=== PATIENT | male | born 1955 | race Asian ===

== ENCOUNTER 2020-05-16 05:13 | Day surgery (SDC) | payer MEDICAID ==
[2020-05-10 12:12] LABS: BASOPHILS % (AUTO) 0.5 % (0-1); EOSINOPHILS # (AUTO) 0.2 X10'3 (0-0.9); EOSINOPHILS % (AUTO) 3.3 % (0-6); LYMPHOCYTES # (AUTO) 2.1 X10'3 (1.1-4.8); LYMPHOCYTES % (AUTO) 32.4 % (21-51); MEAN CORPUSCULAR HEMOGLOBIN 32.5 PG (27.0-31.0); MEAN CORPUSCULAR HGB CONC 34.3 g/dL (33.0-36.5); MEAN CORPUSCULAR VOLUME 94.7 FL (78-98); MEAN PLATELET VOLUME 6.9 FL (7.4-10.4); MONOCYTES # (AUTO) 0.6 X10'3 (0-0.9); MONOCYTES % (AUTO) 8.5 % (2-12); NEUTROPHILS # (AUTO) 3.6 X10'3 (1.8-7.7); NEUTROPHILS % (AUTO) 55.3 % (42-75); PRE OP HEMATOCRIT 47.5 % (42.0-52.0); PRE OP HEMOGLOBIN 16.3 g/dL (14.0-17.9); PRE OP PLATELET COUNT 198 X10'3 (140-440); RED BLOOD COUNT 5.02 X10'6 (4.70-6.10); RED CELL DISTRIBUTION WIDTH 13.8 % (11.5-14.5)
[2020-05-10 12:31] LABS: ALBUMIN 3.6 G/DL (3.4-5.0); ALBUMIN/GLOBULIN RATIO 0.8 (1.1-1.5); ALKALINE PHOSPHATASE 135 IU/L (46-116); BLOOD UREA NITROGEN 13 MG/DL (7-18); BUN/CREATININE RATIO 17.1 (5.4-32.0); CALCIUM 8.8 MG/DL (8.5-10.1); CHLORIDE 106 MMOL/L (99-107); CREATININE 0.76 MG/DL (0.60-1.10); PRE OP ALT 26 U/L (30-65); PRE OP ANION GAP 6 (8-16); PRE OP AST 20 U/L (10-37); PRE OP BILIRUB, TOTAL 0.3 MG/DL (0.0-1.0); PRE OP GLUCOSE 91 MG/DL (70-104); PRE OP POTASSIUM 3.6 MMOL/L (3.4-5.1); PRE OP SODIUM 142 MMOL/L (135-145); TOTAL CARBON DIOXIDE 30.1 MMOL/L (24-32); TOTAL PROTEIN 8.4 G/DL (6.4-8.2); eGFR > 90 ML/MIN
[~2020-05-16] VITALS: Ht 157.5 cm; Wt 67.0 kg
[2020-05-16] VITALS (9 sets, daily range): BP systolic 156–169; BP diastolic 90–98
[~2020-05-16 05:13] MED LIST: AMIT100T61 PO; FLUO20CA39 PO; LEVE500T PO; LORA10TA7 PO; PHEN300C6 PO; ringers solution, lacted 1,000 ML IV SCH
[2020-05-16] MEDS ORDERED: famotidine 20mg tablet PO ONE (05:30)
[2020-05-16] MEDS ORDERED: INDOCYANINE GREEN 25 MG/10 ML VIAL IV ONE (05:30)
[2020-05-16] MEDS ORDERED: ceFAZolin 2gm in dextrose, iso 50 ML IV ONE (05:30)
[2020-05-16] MEDS ORDERED: LIDOcaine 1% (10mg/ml) 2ml vial ONE (05:50)
[2020-05-16] MEDS ORDERED: BUPIVAcaine/PF 2.5 mg/ml (0.25%) 30ml vial ONE (06:40)
[2020-05-16] MEDS ORDERED: LIDOcaine 1% 30ml preserv. free vial ONE (06:40)
[2020-05-16] MEDS ORDERED: labetalol 20mg/4ml (5mg/ml) syringe IV PRN (07:25)
[2020-05-16] MEDS ORDERED: acetaminophen 1,000mg/100ml IV 100 ML IV PRN (07:25)
[2020-05-16] MEDS ORDERED: ringers solution, lacted 1,000 ML IV SCH (07:25)
[2020-05-16] MEDS ORDERED: HYDROmorphone/PF 0.2 MG/ML SYRINGE IV PRN ×2 (07:25)
[2020-05-16] MEDS ORDERED: proCHLORperazine 10 MG/2 ml inj IV PRN (07:25)
[2020-05-16] MEDS ORDERED: ondansetron/PF 4mg/2ml inj IV PRN (07:25)
[2020-05-16] MEDS ORDERED: morphine 4 MG/ML inj SYRINge IV PRN (07:25)
[2020-05-16] MEDS ORDERED: meperidine/PF 25mg/ml syringe IV PRN (07:25)
[2020-05-16] MEDS ORDERED: hydrALAZINE 20mg/ml inj. IV PRN (07:25)
[2020-05-16] MEDS ORDERED: morphine 2 MG/ML inj. syringe IV PRN (07:25)
[2020-05-16] MEDS ORDERED: fentaNYL/PF 50MCG/1 ML 2ML syringe ONE (07:31)
[2020-05-16] MEDS ORDERED: midazolam 2 mg/2 ml injection ONE (08:02)
[2020-05-16] MEDS ORDERED: propofol inj 20 ML IV ONE (08:03)
[2020-05-16] MEDS ORDERED: LIDOcaine 2% (20mg/ml) 5ml vial ONE (08:03)
[2020-05-16] MEDS ORDERED: dexamethasone sod phosphate 4mg/ml inj. ONE (08:03)
[2020-05-16] MEDS ORDERED: ondansetron/PF 4mg/2ml inj ONE (08:03)
[2020-05-16] MEDS ORDERED: rocuronium 10mg/ml inj IV ONE (08:03)
[2020-05-16] MEDS ORDERED: neostigmine methylsulfate 1 MG/ML 10ml vial ONE (08:41)
[2020-05-16] MEDS ORDERED: glycopyrrolate 0.2mg/ml inj ONE (08:41)
[2020-05-16] MEDS ORDERED: acetaminophen w/codeine (30MG) #3 tablet PO PRN (08:50)
--- NOTE | 2020-05-16 09:05 | NUR ---
Received from OR via [facility], accompanied by Anesthesiologist DR PRYOR and report given by Anesthesiologist. PT DROWSY, DENIES PAIN, ABDOMEN W/4 LAP SITES W/BANDAIDS CDI. Addendum: 05/16/20 at 0916 by Sharri Pinedo RN Amended: Links added.
--- NOTE | 2020-05-16 10:21 | NUR ---
PT UP AND ABLE TO AMBULATE SAFELY, PT VOIDED X 3. D/C INSTRUCTIONS GONE OVER W/PTS DAUGHTER WHO VERBALIZED UNDERSTANDING, INSTRUCTIONS ALSO GONE OVER AND GIVEN TO PT AND PTS WHO SPEAK VERY LITTLE BERMUDIAN, PTS DAUGHTER STATED SHE WOULD BE INTERPRETING AND HELPING PT AT HOME. PT D/CD TO HOME VIA W/C TO PRIVATE VEHICLE W/O INCIDENT. Addendum: 05/16/20 at 1051 by Sharri Pinedo RN Amended: Links added.
== END 2020-05-16 10:21 | disposition home or self-care (01) ==
LOC: PAS 05:13
PROVIDERS: ATTEND Surgery
DX: K80.20 Calculus of gallbladder without cholecystitis without obstruction (principal); K42.0 Umbilical hernia with obstruction, without gangrene; K21.9 Gastro-esophageal reflux disease without esophagitis; E78.5 Hyperlipidemia, unspecified; K74.60 Unspecified cirrhosis of liver; F32.9 Major depressive disorder, single episode, unspecified; G47.00 Insomnia, unspecified; F29 Unspecified psychosis not due to a substance or known physiological condition; Z79.899 Other long term (current) drug therapy; Z88.8 Allergy status to other drugs, medicaments and biological substances; Z86.19 Personal history of other infectious and parasitic diseases; F17.210 Nicotine dependence, cigarettes, uncomplicated; F41.9 Anxiety disorder, unspecified; Z87.442 Personal history of urinary calculi; Z98.890 Other specified postprocedural states; Z20.822 Contact with and (suspected) exposure to COVID-19
CPT/HCPCS: 36415; 47563; 49653; 80053; 82948; 85025; 87635; 93005; J0131; J1100; J1170; J2001; J2250; J2405; J2704; J2710; J3010; J3490; J7120; S2900; A4215; A4618; A7000

== ENCOUNTER 2020-12-30 16:42 | Inpatient (IN) | payer MEDICAID ==
[~2020-12-30] VITALS: Ht 157.5 cm; Wt 68.2 kg
[~2020-12-30 16:42] MED LIST changes: -ringers solution, lacted 1,000 ML IV SCH
[2020-12-30 17:12] LABS: BASOPHILS % (AUTO) 0.5 % (0-1); EOSINOPHILS # (AUTO) 0.3 X10'3 (0-0.9); EOSINOPHILS % (AUTO) 4.3 % (0-6); HEMATOCRIT 43.2 % (42.0-52.0); HEMOGLOBIN 15.4 g/dl (14.0-17.9); LYMPHOCYTES # (AUTO) 2.6 X10'3 (1.1-4.8); LYMPHOCYTES % (AUTO) 40.6 % (21-51); MEAN CORPUSCULAR HEMOGLOBIN 33.1 PG (27.0-31.0); MEAN CORPUSCULAR HGB CONC 35.5 g/dL (33.0-36.5); MEAN CORPUSCULAR VOLUME 93.2 FL (78-98); MEAN PLATELET VOLUME 7.3 FL (7.4-10.4); MONOCYTES # (AUTO) 0.4 X10'3 (0-0.9); MONOCYTES % (AUTO) 5.8 % (2-12); NEUTROPHILS # (AUTO) 3.2 X10'3 (1.8-7.7); NEUTROPHILS % (AUTO) 48.8 % (42-75); PLATELET COUNT 184 X10'3 (140-440); RED BLOOD COUNT 4.64 X10'6 (4.70-6.10); RED CELL DISTRIBUTION WIDTH 13.4 % (11.5-14.5); WHITE BLOOD COUNT 6.5 X10'3 (4.5-11.0)
[2020-12-30] MEDS ORDERED: aspirin 325mg tablet PO ONE (17:15)
[2020-12-30 17:22] LABS: PARTIAL THROMBOPLASTIN TIME 27 SECONDS (22-32)
[2020-12-30 17:24] LABS: ALANINE AMINOTRANSFERASE 31 U/L (12-78); ALBUMIN 3.4 G/DL (3.4-5.0); ALBUMIN/GLOBULIN RATIO 0.8 (1.1-1.5); ALKALINE PHOSPHATASE 116 IU/L (46-116); ANION GAP 7 (8-16); ASPARTATE AMINO TRANSFERASE 21 U/L (10-37); BILIRUBIN,TOTAL 0.4 MG/DL (0.1-1.0); BLOOD UREA NITROGEN 12 MG/DL (7-18); BUN/CREATININE RATIO 13.2 (5.4-32.0); CALCIUM 8.2 MG/DL (8.5-10.1); CHLORIDE 108 MMOL/L (99-107); CREATININE 0.91 MG/DL (0.60-1.10); GLUCOSE 152 MG/DL (70-104); POTASSIUM 3.5 MMOL/L (3.5-5.1); SODIUM 140 MMOL/L (135-145); TOTAL CARBON DIOXIDE 25.4 MMOL/L (24-32); TOTAL PROTEIN 7.9 G/DL (6.4-8.2); eGFR 84 ML/MIN
[2020-12-30] MEDS ORDERED: OMEP40CA21 PO (17:24)
[2020-12-30] MEDS ORDERED: AMIT10TA6 PO (17:24)
[2020-12-30] MEDS ORDERED: LEVO50TA8 PO (17:24)
[2020-12-30] MEDS ORDERED: LORA10TA7 PO (17:24)
[2020-12-30] MEDS ORDERED: LEVE10006 PO (17:24)
[2020-12-30] MEDS ORDERED: iohexol 350MG/ML 100ml bottle IV ONE (17:26)
[2020-12-30 17:28] LABS: TROPONIN I < 0.04 NG/ML (0.0-0.05)
[2020-12-30] MEDS ORDERED: ondansetron/PF 4mg/2ml inj IV PRN (20:20)
[2020-12-30] MEDS ORDERED: magnesium hydroxide 30ml (MOM) UD suspension PO PRN (20:20)
[2020-12-30] MEDS ORDERED: acetaminophen 325mg tablet PO PRN ×2 (20:20)
[2020-12-30] MEDS ORDERED: potassium Cl 40MEQ/1/2NS 520ml 520 ML IV PRN ×2 (20:20)
[2020-12-30] MEDS ORDERED: magnesium 4gm in 100ml NS 100 ML IV PRN (20:20)
[2020-12-30] MEDS ORDERED: mag hydrox/Alum hydrox/simeth 30ml oral suspension PO PRN (20:20)
[2020-12-30] MEDS ORDERED: magnesium Cl slow-release 64mg tablet PO PRN (20:20)
[2020-12-30] MEDS ORDERED: PERFLUTREN PROTEIN-A MICROSPHR (Optison) 0.22 MG/ML 3ML VIAL IV ONE (20:20)
[2020-12-30] MEDS ORDERED: magnesium 2GM in 50ml NS 50 ML IV PRN (20:20)
[2020-12-30] MEDS ORDERED: potassium Cl 20 mEq SR tablet PO PRN ×2 (20:20)
[2020-12-30] MEDS: normal saline 1000ml 1,000 ML IV SCH (20:58)
[2020-12-30] MEDS: levetiracetam 250mg tablet PO SCH (20:59)
[2020-12-30] MEDS ORDERED: temazepam 15mg capsule PO PRN (21:00)
[2020-12-30] MEDS ORDERED: amitriptyline 10mg tablet PO SCH (21:00)
[2020-12-31] MEDS: normal saline 1000ml 1,000 ML IV SCH (00:39)
[2020-12-31] MEDS ORDERED: levoTHYROXINE 25mcg tablet PO SCH (07:00)
[2020-12-31] MEDS ORDERED: pantoprazole 40mg Tablet.DR PO SCH (07:30)
[2020-12-31] MEDS ORDERED: K and/or MAG REPLACEMENT MC SCH (08:00)
[2020-12-31] MEDS ORDERED: heparin, porcine 5000 units/ml vial SQ SCH (08:00)
[2020-12-31] MEDS ORDERED: aspirin 81mg, enteric-coated 1 TAB TABLET.DR PO SCH (08:00)
[2020-12-31] MEDS ORDERED: loratadine 10mg tablet PO SCH (08:00)
[2020-12-31] MEDS ORDERED: clopidogrel 75mg tablet PO SCH (08:00)
[2020-12-31] MEDS ORDERED: atorvastatin 20mg tablet PO SCH (08:00)
[2020-12-31] MEDS: levetiracetam 250mg tablet PO SCH (08:28)
--- NOTE | 2020-12-31 10:27 | NUR ---
PHYSICAL THERAPY IS HERE TO EVALUATE PATIENT.
--- NOTE | 2020-12-31 10:29 | NUR ---
FAMILY CONTACTS: INOCENCIO (SON) [phone], AND OLI (DAUGHTER) [phone]. IS AT THE BEDSIDE WITH PATIENT DURING PHYSICAL THERAPY AT PRESENT.
[2020-12-31 10:39] LABS: BASOPHILS % (AUTO) 0.4 % (0-1); EOSINOPHILS # (AUTO) 0.2 X10'3 (0-0.9); EOSINOPHILS % (AUTO) 4.7 % (0-6); HEMATOCRIT 42.5 % (42.0-52.0); HEMOGLOBIN 15.1 g/dl (14.0-17.9); LYMPHOCYTES # (AUTO) 1.8 X10'3 (1.1-4.8); MEAN CORPUSCULAR HEMOGLOBIN 33.3 PG (27.0-31.0); MEAN CORPUSCULAR HGB CONC 35.7 g/dL (33.0-36.5); MEAN CORPUSCULAR VOLUME 93.4 FL (78-98); MEAN PLATELET VOLUME 7.4 FL (7.4-10.4); MONOCYTES # (AUTO) 0.3 X10'3 (0-0.9); MONOCYTES % (AUTO) 6.5 % (2-12); NEUTROPHILS # (AUTO) 2.8 X10'3 (1.8-7.7); NEUTROPHILS % (AUTO) 54.4 % (42-75); PLATELET COUNT 170 X10'3 (140-440); RED BLOOD COUNT 4.54 X10'6 (4.70-6.10); RED CELL DISTRIBUTION WIDTH 13.7 % (11.5-14.5); WHITE BLOOD COUNT 5.2 X10'3 (4.5-11.0)
[2020-12-31 10:50] LABS: ALANINE AMINOTRANSFERASE 30 U/L (12-78); ALBUMIN 3.1 G/DL (3.4-5.0); ALBUMIN/GLOBULIN RATIO 0.7 (1.1-1.5); ALKALINE PHOSPHATASE 108 IU/L (46-116); ANION GAP 10 (8-16); ASPARTATE AMINO TRANSFERASE 21 U/L (10-37); BILIRUBIN,TOTAL 0.7 MG/DL (0.1-1.0); BLOOD UREA NITROGEN 10 MG/DL (7-18); BUN/CREATININE RATIO 11.6 (5.4-32.0); CALCIUM 8.1 MG/DL (8.5-10.1); CHLORIDE 106 MMOL/L (99-107); CHOL/HDL RATIO 4.3 (0.00-4.99); CHOLESTEROL 187 MG/DL (0-200); CREATININE 0.86 MG/DL (0.60-1.10); GLUCOSE 107 MG/DL (70-104); HDL CHOLESTEROL 44 MG/DL (35-60); LDL CHOLESTEROL 115 MG/DL (50-100); POTASSIUM 3.6 MMOL/L (3.5-5.1); SODIUM 142 MMOL/L (135-145); TOTAL CARBON DIOXIDE 26.3 MMOL/L (24-32); TOTAL PROTEIN 7.3 G/DL (6.4-8.2); TRIGLYCERIDES 111 MG/DL (20-135); eGFR 90 ML/MIN
--- NOTE | 2020-12-31 11:22 | NUR ---
DR. BUENO PAGED RE: P.T. EVALUATION. PAGER ID: [phone] MESSAGE: ER BED 1 WAS SEEN BY THE PHYSICAL THERAPISTS AND THERE IS A NOTE ON THE CHART THAT HE IS SAFE TO GO HOME AND CAN BE DC WITH OUTPATIENT PT. THANKS, NINA( EXT. [phone])
[2020-12-31] MEDS ORDERED: ATOR20TA66 PO (12:15)
[2020-12-31] MEDS ORDERED: ASPI-1071 PO (12:15)
--- NOTE | 2020-12-31 12:20 | NUR ---
DR. BUENO HERE TO SPEAK WITH PATIENT, WITH TRANSLATION FROM FAMILY MEMBER. PATIENT WILL BE DISCHARGED TODAY.
--- NOTE | 2020-12-31 13:30 | NUR ---
Order received for plavix 75mg po daily for [address] Calvin, order to be phoned to [facility] on [address] [phone]
[2020-12-31 13:58] VITALS: BP 169/99
--- NOTE | 2020-12-31 14:17 | NUR ---
IV discontinued catherter intact. Discharge orderes reviewed with patient and , he signed paper work and was taken to his care via wheelchair accompanied by .
--- NOTE | 2020-12-31 14:40 | NUR ---
Plavix 75mg po daily # 20 called into [facility] on [facility].
== END 2020-12-31 14:17 | disposition home or self-care (01) | DRG 45 ==
LOC: ER 16:43 → ED HOLD 20:23
PROVIDERS: ADMIT Internal Medicine; ATTEND Internal Medicine
PROC: B3251ZZ Computerized Tomography (CT Scan) of Bilateral Common Carotid Arteries using Low Osmolar Contrast (ICD-10-PCS; principal; 2020-12-30)
PROC: B32G1ZZ Computerized Tomography (CT Scan) of Bilateral Vertebral Arteries using Low Osmolar Contrast (ICD-10-PCS; 2020-12-30)
PROC: B32R1ZZ Computerized Tomography (CT Scan) of Intracranial Arteries using Low Osmolar Contrast (ICD-10-PCS; 2020-12-30)
PROC: B3281ZZ Computerized Tomography (CT Scan) of Bilateral Internal Carotid Arteries using Low Osmolar Contrast (ICD-10-PCS; 2020-12-30)
DX: I63.81 Other cerebral infarction due to occlusion or stenosis of small artery (principal); G81.94 Hemiplegia, unspecified affecting left nondominant side; E03.9 Hypothyroidism, unspecified; F17.210 Nicotine dependence, cigarettes, uncomplicated; F32.9 Major depressive disorder, single episode, unspecified; G40.909 Epilepsy, unspecified, not intractable, without status epilepticus; I10 Essential (primary) hypertension; K21.9 Gastro-esophageal reflux disease without esophagitis; Z79.02 Long term (current) use of antithrombotics/antiplatelets; Z79.899 Other long term (current) drug therapy; Z88.5 Allergy status to narcotic agent; Z71.6 Tobacco abuse counseling
CPT/HCPCS: 36415; 70450; 70496; 70498; 70551; 71045; 80053; 80061; 82948; 83036; 83735; 84484; 85025; 85610; 85730; 93005; 93306; 97161; 97530; 99285; G0378; J1644; J7030; Q9967